=== PATIENT | male | born 1960 | race Two or more races ===

== ENCOUNTER 2016-11-07 14:00 | Outpatient (CLI) | payer BC | END 2016-11-07 23:59 | disposition home or self-care (01) | LOC: WOU 14:00 | PROVIDERS: ATTEND Surgery | DX: R20.0 Anesthesia of skin (principal); E66.9 Obesity, unspecified; Z68.32 Body mass index [BMI] 32.0-32.9, adult; R12 Heartburn; A04.8 Other specified bacterial intestinal infections; J32.8 Other chronic sinusitis; Q79.59 Other congenital malformations of abdominal wall; E65 Localized adiposity; F41.9 Anxiety disorder, unspecified | CPT/HCPCS: G0463 ==